=== PATIENT | female | born 1960 | race African-American/Black ===

== ENCOUNTER 2016-12-22 13:13 | Emergency (ER) | payer OTHER ==
[~2016-12-22] VITALS: Ht 157.5 cm; Wt 89.6 kg
[2016-12-22] MEDS ORDERED: AUGMENTIN875 MG PO (14:16)
[2016-12-22 14:55] VITALS: BP 142/86
== END 2016-12-22 14:55 | disposition home or self-care (01) ==
LOC: EME 13:13
DX: S60.472A Other superficial bite of right middle finger, initial encounter (principal); W54.0XXA Bitten by dog, initial encounter
CPT/HCPCS: 99281; 99284